=== PATIENT | male | born 1970 | race Caucasian/White ===

== ENCOUNTER 2022-10-02 12:20 | Outpatient (CLI) | payer BC ==
[~2022-10-02 12:20] MED LIST: Magnevist 469MG/ML 20 ML VIAL ONE
== END 2022-10-02 12:21 | disposition home or self-care (01) ==
LOC: CSHMRI 12:20
PROVIDERS: ATTEND Neurological Surgery
DX: Q04.8 Other specified congenital malformations of brain (principal); R94.02 Abnormal brain scan
CPT/HCPCS: 70553; A9579